=== PATIENT | female | born 1990 | race Caucasian/White ===

== ENCOUNTER 2017-03-09 10:14 | Emergency (ER) | payer SELFPAY ==
[~2017-03-09] VITALS: Ht 159.3 cm; Wt 69.0 kg
[~2017-03-09 10:14] MED LIST: FLEXERIL PO; IBUPROFEN600 MG PO; LORTAB5 PO; METHOCARBAMOL500 MG PO; MOTRIN800 MG PO
[2017-03-09] MEDS ORDERED: BACTRIM DS1 TAB PO (11:14)
[2017-03-09 11:20] VITALS: BP 136/87
== END 2017-03-09 11:36 | disposition home or self-care (01) | DRG 603 ==
LOC: ED 10:14
PROC: 0H91XZZ Drainage of Face Skin, External Approach (ICD-10-PCS; principal; 2017-03-09)
DX: L02.01 Cutaneous abscess of face (principal); B95.61 Methicillin susceptible Staphylococcus aureus infection as the cause of diseases classified elsewhere; F17.210 Nicotine dependence, cigarettes, uncomplicated